=== PATIENT | female | born 1985 | race Caucasian/White ===

== ENCOUNTER 2016-08-02 19:08 | Emergency (ER) | payer MEDICAID ==
[~2016-08-02] VITALS: Ht 165.1 cm; Wt 74.8 kg
[2016-08-02 19:34] VITALS: BP 111/56
--- NOTE | 2016-08-02 20:15 | NUR ---
TO ER OF2
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
--- NOTE | 2016-08-02 20:51 | NUR ---
Patient being evaluated by physician.
[2016-08-02] MEDS ORDERED: traMADol 50 MG TAB PO ONE (21:05)
[2016-08-02] MEDS ORDERED: ONDANSETRON 4 MG ODT PO ONE (21:10)
[2016-08-02 21:32] VITALS: BP 123/89
--- NOTE | 2016-08-02 21:32 | NUR ---
Patient discharged with v/s stable. Written and verbal after care instructions given and explained. Patient alert, oriented and verbalized understanding of instructions. Ambulatory with steady gait. All questions addressed prior to discharge. ID band removed. Patient advised to follow up with PMD. Rx of TRAMADOL AND ZOFRAN given. Patient educated on indication of medication including possible reaction and side effects. Opportunity to ask questions provided and answered.
== END 2016-08-02 21:32 | disposition home or self-care (01) ==
LOC: MED 19:08
DX: S50.02XA Contusion of left elbow, initial encounter (principal); W01.0XXA Fall on same level from slipping, tripping and stumbling without subsequent striking against object, initial encounter; Y93.89 Activity, other specified; Y92.89 Other specified places as the place of occurrence of the external cause; Y99.8 Other external cause status
CPT/HCPCS: 29105; 73070; 99284; S0119